=== PATIENT | male | born 2000 | race Caucasian/White ===

== ENCOUNTER 2023-07-24 19:21 | Emergency (ER) | payer SELFPAY ==
[~2023-07-24] VITALS: Ht 175.3 cm; Wt 68.2 kg
[2023-07-24 19:22] VITALS: BP 113/70; TEMP 98.9
[2023-07-24] MEDS ORDERED: ipratropium/albuterol 3ml nebule NEB ONE (19:30)
[2023-07-24 19:51] VITALS: PULSE 84; O2SAT 100
[2023-07-24 20:00] VITALS: PULSE 92; RESP 18; O2SAT 99
[2023-07-24] MEDS ORDERED: dexamethasone 4mg tablet PO ONE (20:30)
[2023-07-24] MEDS ORDERED: DEXAMETHASONE 6 MG TABLET PO ONE (20:30)
[2023-07-24] MEDS ORDERED: ALBU6.7H14 INH (20:32)
[2023-07-24] MEDS ORDERED: DEC4T PO (20:32)
[2023-07-24] MEDS ORDERED: aspirin 325mg tablet PO ONE (20:55)
== END 2023-07-24 21:31 | disposition left against medical advice (07) ==
LOC: ER 19:22
DX: U07.1 COVID-19 (principal); J45.901 Unspecified asthma with (acute) exacerbation; Z79.899 Other long term (current) drug therapy
CPT/HCPCS: 71045; 93005; 94640; 94760; 99283